=== PATIENT | female | born 1985 | race Caucasian/White ===

== ENCOUNTER 2017-11-04 03:31 | Emergency (ER) | payer SELFPAY | END 2017-11-04 04:42 | disposition home or self-care (01) | PROVIDERS: Emergency Provider Emergency Medicine; Visit Provider Emergency Medicine | DX: S05.01XA Injury of conjunctiva and corneal abrasion without foreign body, right eye, initial encounter (principal); W51.XXXA Accidental striking against or bumped into by another person, initial encounter; Y92.019 Unspecified place in single-family (private) house as the place of occurrence of the external cause; Z72.0 Tobacco use | CPT/HCPCS: 99283 ==

== ENCOUNTER → 2019-01-02 09:15 | Outpatient (CLI) | payer OTHER, SELFPAY ==
[2019-01-02 10:51] LABS: HCG,Quantitative 110 mIU/mL
== END ==
PROVIDERS: Visit Provider Emergency Medicine
DX: Z32.00 Encounter for pregnancy test, result unknown (principal)
CPT/HCPCS: 36415; 84702

== ENCOUNTER → 2019-01-09 08:24 | Outpatient (CLI) | payer OTHER, SELFPAY ==
[2019-01-09 09:51] LABS: HCG,Quantitative 7 mIU/mL
== END ==
PROVIDERS: Visit Provider Nurse Practitioner Obstetrics & Gynecology
DX: Z32.00 Encounter for pregnancy test, result unknown (principal)
CPT/HCPCS: 36415; 84702

== ENCOUNTER → 2019-03-23 16:59 | Outpatient (CLI) | payer OTHER, SELFPAY ==
[2019-03-23 20:12] LABS: HCG,Quantitative 12806 mIU/mL
== END ==
PROVIDERS: Visit Provider Nurse Practitioner Obstetrics & Gynecology
DX: Z34.90 Encounter for supervision of normal pregnancy, unspecified, unspecified trimester
CPT/HCPCS: 36415; 84702

== ENCOUNTER → 2019-04-14 10:17 | Outpatient (CLI) | payer OTHER, SELFPAY ==
--- NOTE | 2019-04-14 10:18 | US_ITS ---
US OB transvaginal HISTORY: ITS.REASON: US OB Dates ORDERING PHYSICIAN: Jordan Elizalde MD PATIENT AGE: 33 years COMPARISON: None FINDINGS: An intrauterine gestational sac is present with a pole with a crown-rump length of 2.01cm correlating to gestational age of 8w5d. heart tones are present with an FHR of 160 bpm's. Yolk sac is noted. The amnion and chorion have not yet fused. Adnexa: Unremarkable. IMPRESSION: Live intrauterine gestation at 8 weeks 5 days as described above. Estimated due date by Ultrasound is 11/19/2019
== END ==
PROVIDERS: Visit Provider Nurse Practitioner Obstetrics & Gynecology
DX: O26.841 Uterine size-date discrepancy, first trimester (principal)
CPT/HCPCS: 76817

== ENCOUNTER → 2019-04-14 11:05 | Outpatient (CLI) | payer OTHER, SELFPAY | PROVIDERS: Visit Provider Nurse Practitioner Obstetrics & Gynecology | DX: O26.841 Uterine size-date discrepancy, first trimester (principal) ==

== ENCOUNTER → 2019-05-04 09:07 | Outpatient (CLI) | payer OTHER, SELFPAY ==
[2019-05-04 09:30] LABS: Basophils % 0.4 % (0.1-2.0); Eosinophils # 0.2 K/mm3 (0.0-0.4); Eosinophils % 2.1 % (0.1-12.0); Hematocrit 37.4 % (37.0-47.0); Hemoglobin 11.9 g/dL (12.2-16.2); Lymphocytes # 2.5 K/mm3 (0.7-4.5); Mean Corpuscular HGB Conc 31.8 g/dL (31.8-35.4); Mean Corpuscular Hemoglobin 28.4 pg (27.0-31.2); Mean Corpuscular Volume 89.4 fl (81-99); Mean Platelet Volume 9.9 fl (7.4-10.4); Monocytes # 0.3 K/mm3 (0.1-1.0); Monocytes % 4.2 % (1.7-9.3); Neutrophils # 4.7 K/mm3 (1.8-7.8); Neutrophils % 61.2 % (37.0-80.0); Platelet Count 151 K/mm3 (142-424); Red Blood Count 4.19 M/mm3 (4.20-5.40); Red Cell Distribution Width 12.4 % (11.5-17.5); White Blood Count 7.7 K/mm3 (4.8-10.8)
[2019-05-05 09:13] LABS: HIV Screen 4th Generation wRfx Non Reactive (Non Reactive)
[2019-05-05 17:12] LABS: Hepatitis B Surface Antigen Negative (Negative); Hepatitis C Antibody <0.1 s/co ratio (0.0-0.9); Rapid Plasma Reagin Ab Titer Non Reactive (NonRea<1:1); Rubella Antibodies, IgG 1.23 index (Immune >0.99)
== END ==
PROVIDERS: Visit Provider Nurse Practitioner Obstetrics & Gynecology
DX: Z34.90 Encounter for supervision of normal pregnancy, unspecified, unspecified trimester (principal)
CPT/HCPCS: 36415; 85025; 86592; 86703; 86762; 86850; 87340; 87380; G0432

== ENCOUNTER → 2019-06-01 10:30 | Outpatient (CLI) | payer OTHER, SELFPAY | PROVIDERS: Visit Provider Nurse Practitioner Obstetrics & Gynecology | DX: O09.899 Supervision of other high risk pregnancies, unspecified trimester (principal); Z36.0 Encounter for antenatal screening for chromosomal anomalies | CPT/HCPCS: 36415 ==

== ENCOUNTER → 2019-07-06 10:01 | Outpatient (CLI) | payer OTHER, SELFPAY ==
--- NOTE | 2019-07-06 10:02 | US_ITS ---
PROCEDURE: US OB /MATERNAL DETAIL Patient Age:34Y CLINICAL INDICATION: US OB Complete Twenty week survey and anatomy scan COMPARISON: April 14 ultrasound revealed a early 8 week 5 day intrauterine gestation FINDINGS: Single viable intrauterine gestation. Cephalic position. Placenta: Posterior high placentaplacenta grade 1. There is average amount fluid. The cervix appears satisfactory. Closed and measuring over 4 cm in length. Complete survey performed and was unremarkable on the submitted images as in PACS. No discrete anomalies identified on survey imaging by technologist. Active fetus. movement seen throughout the exam Three-vessel cord with satisfactory umbilical cord insertion. 4- chamber heart noted.-with cine loop included. Limited images RVOT and LVOT unremarkable Survey of brain & ventricles Unremarkable. Face and neck survey unremarkable. Diaphragm and chest views unremarkable. Abdomen: Both kidneys noted and unremarkable. Stomach noted and satisfactory. Spine: Survey of the spine satisfactory with no anomalies identified nor imaged. Both arms and legs noted. Amniotic Fluid: Adequate. Maternal adnexa: No additional findings encountered Measurements: Average ultrasound age 20 weeks 2 days. Gestational Age 20 weeks 4 days based on LMP02/12/2019 Estimated due date by ultrasound age 0111/21/2019. Estimated weight 340.7 ggrams. BPD = 20 weeks 3 day, BPD 4.76 cm OFD = 6.14 cm with = 20 week 5 day HC = 17.26 cm = 19 weeks 6 day AC = = 15.34 cm =20 week 4 day FL = 3.2 cm = 20 week 0 day Growth Percentile= 26.8 Percent% Heart Rate = 139 bpm Cerebellum = 2.02 cm, =20 week 4 day Nuchal fold = 2.2 cm HC/AC is 1.13 CI is 0.78 FL/BPD is 0.67 FL/AC is 0.21 IMPRESSION: 1. . single viable intrauterine gestation. Cephalic position. 2. 20 weeks 2 day average ultrasound age 3.Anatomical survey unremarkable ; WNL. 4. movement seen throughout. Amniotic fluid normal. Cervix all long, and closed Dictated by: Michael Menchaca MD 07/07/2019 10:37 Signed by: <Electronically signed by Michael Menchaca MD in [place]> 07/07/2019 10:37
== END ==
PROVIDERS: Visit Provider Nurse Practitioner Obstetrics & Gynecology
DX: Z36.0 Encounter for antenatal screening for chromosomal anomalies (principal)
CPT/HCPCS: 76811

== ENCOUNTER → 2019-09-26 12:43 | Outpatient (CLI) | payer OTHER, SELFPAY ==
--- NOTE | 2019-09-26 12:57 | US_ITS ---
PROCEDURE: US OB BIOPHYSICAL PROFILE CLINICAL INDICATION: US OB BPP Growth- SGA TECHNIQUE: FINDINGS: There is a single live fetus which is in cephalic presentation. Cervical length is 4.7 cm. heart and body motion noted. A average ultrasound age is 31 weeks 6 days. Gestational age 32 weeks 2 days. Estimated due date by ultrasound is 11/22/2019. BPD is 32 weeks 0 days, OFD 32 weeks 2 days, HC 32 weeks 0 days, AC 32 weeks 0 days, FL 31 weeks 2 days. Heart rate is 156 beats per minute. All parameters correlate. Amniotic fluid index: 14.07 cm Qualitative AFV: 2 breathing movements: 2 Gross body movements: 2 Tone: 2 Biophysical profile score: 8 The placenta is posterior and grade 2. No previa or abruption IMPRESSION: Live IUP at 31 weeks 6 days which is in cephalic presentation. Biophysical profile is 8 of 8 with amniotic fluid index of 14 cm Dictated by: Cali Camejo MD 09/26/2019 17:47 Electronically signed by Cali Camejo MD in [place] 09/26/2019 17:47
== END ==
PROVIDERS: Visit Provider Nurse Practitioner Obstetrics & Gynecology
DX: O36.5990 Maternal care for other known or suspected poor fetal growth, unspecified trimester, not applicable or unspecified (principal)
CPT/HCPCS: 76816; 76819

== ENCOUNTER → 2019-10-17 16:50 | Outpatient (CLI) | payer OTHER, SELFPAY | PROVIDERS: Visit Provider Nurse Practitioner Obstetrics & Gynecology | DX: Z34.90 Encounter for supervision of normal pregnancy, unspecified, unspecified trimester (principal); Z3A.35 35 weeks gestation of pregnancy | CPT/HCPCS: 86403 ==

== ENCOUNTER → 2019-10-23 12:55 | Outpatient (CLI) | payer OTHER, SELFPAY ==
--- NOTE | 2019-10-23 12:56 | US_ITS ---
PROCEDURE: US OB BPP W/FET-MAT S/D CLINICAL INDICATION: US OB BPP Growth- SGA COMPARISON: US OB BIOPHYSICAL PROFILE from 09/26/2019 FINDINGS: Single viable intrauterine gestation. Cephalic position. Placenta: Posteriorplacenta grade 2. ERASMO is lower normal at 8 cm. Biophysical profile is 8 of 8 The cervix appears satisfactory. Closed and measuring 3 cm in length. Doppler evaluation of the umbilical artery demonstrates a resistive index 0.60 and SD ratio of 2.5 both less than 95th percentile Measurements: Average ultrasound age 35weeks 2days. Gestational Age 35weeks 2days Estimated due date by ultrasound age 0111/25/2019. Estimated weight 5lb 6.33ozgrams. BPD = 37/1 OFD = 35/5 HC = 35/6 AC = 34/4 FL = 33/1 Growth Percentile= 14% Heart Rate = 122bpm Cerebellum = Humerus = HC/AC is 1.04 CI is 0.83 FL/BPD is 0.7 normal is 71 -87 percent FL/AC is 0.21 normal is 20-24 percent IMPRESSION: There is a single live fetus which is in cephalic presentation. Average ultrasound age is 35 weeks 2 days with an estimated weight 2448 g which is 14 percentile. Biophysical profile is 8 of 8 with an ERASMO at lower normal at 8 cm. Resistive index and SD ratio are less than 95th percentile The femur length is slightly low compared to the remaining parameters. Please see above for detail. Dictated by: Cali Camejo MD 11/16/2019 15:46 Electronically signed by Cali Camejo MD in [place] 11/16/2019 15:46
== END ==
PROVIDERS: Visit Provider Nurse Practitioner Obstetrics & Gynecology
DX: O36.5990 Maternal care for other known or suspected poor fetal growth, unspecified trimester, not applicable or unspecified (principal)
CPT/HCPCS: 76819

== ENCOUNTER → 2019-11-06 09:05 | Outpatient (CLI) | payer OTHER, SELFPAY ==
--- NOTE | 2019-11-06 09:16 | US_ITS ---
PROCEDURE: US OB BIOPHYSICAL PROFILE CLINICAL INDICATION: US OB BPP Growth- SGA TECHNIQUE: FINDINGS: The following parameters are obtained: Average ultrasound age is Average 35weeks 6days Estimated due date by ultrasound is 12/05/2019. Estimated weight is 2,771.8g. BPD: 253days 2hours OFD: !Error HC: 32cm AC: 32.6cm FL: 6.6cm heart rate: 134bpm bpm. HC/AC: 0.98 Cephalic index: 0.79 FL/BPD: 0.74 FL/AC: 0.2 Amniotic fluid index: 14.18cm Qualitative AFV: 2 breathing movements: 2 Gross body movements: 2 Tone: 2 Biophysical profile score: 8 Doppler evaluation of the umbilical artery: SD ratio: Resistive index: No obvious anomalies evident. Placenta: Posterior grade 3 Cervix: . 4.5 centimeters in length. IMPRESSION: Compared to 10/23/2019, the posterior placenta is considered grade 3. Biophysical profile 8/8. heart rate 134 beats per minute. No other change. Dictated by: Krystian Savage 11/06/2019 12:09 Electronically signed by Krystian Savage in [place] 11/06/2019 12:09
== END ==
PROVIDERS: Visit Provider Nurse Practitioner Obstetrics & Gynecology
DX: O36.5990 Maternal care for other known or suspected poor fetal growth, unspecified trimester, not applicable or unspecified (principal)
CPT/HCPCS: 76816; 76819

== ENCOUNTER 2019-11-09 11:13 | Outpatient (CLI) | payer OTHER, SELFPAY ==
[2019-11-09 11:34] VITALS: BMI 23.0
[2019-11-09 12:27] VITALS: BMI 23.0
== END 2019-11-09 12:30 | disposition home or self-care (01) ==
LOC: OBOUT 11:14 → OB 11:15
PROVIDERS: Visit Provider Obstetrics & Gynecology
DX: O36.5930 Maternal care for other known or suspected poor fetal growth, third trimester, not applicable or unspecified (principal); Z3A.38 38 weeks gestation of pregnancy
CPT/HCPCS: 59025

== ENCOUNTER 2019-11-13 00:49 | Observation (INO) ==
[2019-11-13 05:49] LABS: Microscopic, Urine URINE MICROSCOPIC (MICROSCOPIC)
[2019-11-13 06:07] LABS: Appearance,Urine CLEAR (Clear); Bilirubin,Urine Negative (Negative); Blood, Urine 1+ (Negative); Color,Urine YELLOW (Yellow); Glucose,Urine (UA) Negative (Negative); Ketones,Urine Negative (Negative); Leukocyte Esterase,Urine 1+ (Negative); PH,Urine 6.5 (5.0-8.5); Protein,Urine 1+ (Negative); Specific Gravity, Urine 1.025 (1.005-1.030); Urobilinogen,Urine 0.2 EU/dl (0.2)
[2019-11-13 06:09] VITALS: BP 112/69
[2019-11-13 06:17] LABS: Amphetamine/Metha Screen,Urine Negative ng/mL (<1000); Barbiturates Screen,Urine Negative ng/mL (<200); Benzodiazepines Screen,Urine Negative ng/mL (<200); Cannabinoid Screen,Urine Negative ng/mL (<50); Cocaine Screen,Urine Negative ng/mL (<300); Methadone Screen,Urine Negative ng/mL (<300); Opiate Screen,Urine Negative ng/mL (<300); Phencyclidine Screen,Urine Negative ng/mL (<25)
[2019-11-13 06:18] LABS: Amorphous Sediment,Urine 1+ /lpf; Bacteria,Urine 2+ /lpf
--- NOTE | 2019-11-13 09:06 | Discharge Summary ---
General - General Admission date:: 11/13/19 Discharge date: 11/13/19 HPI HPI: She is a 34-year-old 3 para 2 at 39+ weeks gestational age. She has a small for gestational age . Last ultrasound showed it was just 14th centile. She came in this morning for induction of labor. However she had a low-grade temperature. We tested her for the flu and she is flu positive so we will plan to send her home and have her come back later in the week. She will also go home with Tamiflu. Hospital Course Hospital Course: She had runny eyes and runny nose when she came in this morning and a low-grade temperature at 99.6. She was tested and it came back positive for the flu. As result of that we have elected not to induce her labor today. We will plan to induce her labor in about 5 days as long as she has remained afebrile. I have given her a prescription for Tamiflu to take home. She will follow-up later this week. Objective Vital signs: Temp Pulse Resp BP Pulse Ox 99.8 F H 97 H 18 112/69 100 11/13/19 04:57 11/13/19 04:57 11/13/19 04:57 11/13/19 04:57 11/13/19 04:57 no acute distress Comments: She has runny eyes and body aches Results Labs on day of discharge: Labs from last 24 hours 11/13/19 11/13/19 11/13/19 06:47 05:00 05:00 Urine Color Yellow Urine Appearance Clear Urine pH 6.5 Ur Specific [place] 1.025 Urine Protein 1+ Urine Glucose (UA) Negative Urine Ketones Negative Urine Blood 1+ Urine Nitrate Negative Urine Bilirubin Negative Urine Urobilinogen 0.2 Ur Leukocyte Esterase 1+ A Urine RBC 5-10 Urine WBC 10-20 Ur Squamous Epith Cells 5-10 Amorphous Sediment 1+ Urine Bacteria 2+ Urine Opiates Screen Negative Urine Methadone Screen Negative Ur Barbituates Screen Negative Ur Phencyclidine Scrn Negative Ur Amphetamines Screen Negative U Benzodiazepines Scrn Negative Urine Cocaine Screen Negative U Marijuana (THC) Screen Negative Influenza Type A Ag Positive A Influenza Type B Ag Negative DS: Diagnosis - Discharge Diagnosis (1) Influenza Status: Acute (2) Status: Acute Discharge Plan - Patient Discharge Instructions ACTIVITY: Continue current activity DIET: continue same diet - Follow up Plan Disposition: Home, Self-Retirement Medications: Home Medications Medication Instructions Recorded Confirmed Type pediatric pbulknok-itiw-frt 2 tab PO DAILY tab 04/06/19 11/01/19 History ferrous sulfate 325 mg (65 mg 325 mg PO DAILY #30 tab 07/07/19 11/01/19 Rx iron) tablet magnesium oxide 500 mg tablet 500 mg PO DAILY 08/22/19 11/01/19 History famotidine-Ca carb-mag hydrox 10 1 tab PO DAILY 10/17/19 11/01/19 History mg-800 mg-165 mg chewable tablet Oseltamivir Phosphate [Tamiflu 75 mg PO DAILY #10 cap 11/13/19 Rx 75mg Capsule] Prescriptions/Medication Reconciliation: New Oseltamivir Phosphate [Tamiflu 75mg Capsule] 75 mg PO DAILY #10 cap Continued magnesium oxide 500 mg tablet 500 mg PO DAILY pediatric pjsokrew-idvj-foj 2 tab PO DAILY tab ferrous sulfate 325 mg (65 mg iron) tablet 325 mg PO DAILY #30 tab famotidine-Ca carb-mag hydrox 10 mg-800 mg-165 mg chewable tablet 1 tab PO DAILY - Problem Reconciliation Problems Reviewed?: Yes
== END 2019-11-13 09:40 | disposition home or self-care (01) ==
LOC: INTOOBSV 04:51 → OB 04:51
PROVIDERS: ADMIT Nurse Practitioner Obstetrics & Gynecology; ATTEND Nurse Practitioner Obstetrics & Gynecology
CPT/HCPCS: 59025; 80305; 81001; 87086; 87275; 87276; G0378

== ENCOUNTER 2019-11-17 04:58 | Inpatient (IN) ==
[2019-11-17 06:10] LABS: Microscopic, Urine URINE MICROSCOPIC (MICROSCOPIC)
[2019-11-17 06:19] LABS: Basophils % 0.3 % (0.1-2.0); Eosinophils # 0.1 K/mm3 (0.0-0.4); Eosinophils % 1.6 % (0.1-12.0); Hematocrit 32.5 % (37.0-47.0); Hemoglobin 10.9 g/dL (12.2-16.2); Lymphocytes # 2.6 K/mm3 (0.7-4.5); Lymphocytes % 31.1 % (10-50); Mean Corpuscular HGB Conc 33.5 g/dL (31.8-35.4); Mean Corpuscular Volume 93.3 fl (81-99); Mean Platelet Volume 11.8 fl (7.4-10.4); Monocytes # 0.3 K/mm3 (0.1-1.0); Monocytes % 3.5 % (1.7-9.3); Neutrophils # 5.3 K/mm3 (1.8-7.8); Neutrophils % 63.6 % (37.0-80.0); Platelet Count 146 K/mm3 (142-424); Red Blood Count 3.48 M/mm3 (4.20-5.40); Red Cell Distribution Width 13.9 % (11.5-17.5); White Blood Count 8.3 K/mm3 (4.8-10.8)
[2019-11-17 06:21] LABS: Appearance,Urine CLEAR (Clear); Bilirubin,Urine Negative (Negative); Blood, Urine TRACE-I (Negative); Color,Urine YELLOW (Yellow); Glucose,Urine (UA) Negative (Negative); Ketones,Urine Negative (Negative); Leukocyte Esterase,Urine 2+ (Negative); PH,Urine 6.5 (5.0-8.5); Protein,Urine TRACE (Negative); Urobilinogen,Urine 0.2 EU/dl (0.2)
[2019-11-17 06:23] LABS: Anion Gap 13.7 mEq/L (5-15); Calcium 8.4 mg/dL (8.5-10.1)
[2019-11-17 06:34] LABS: Amphetamine/Metha Screen,Urine Negative ng/mL (<1000); Barbiturates Screen,Urine Negative ng/mL (<200); Benzodiazepines Screen,Urine Negative ng/mL (<200); Cannabinoid Screen,Urine Negative ng/mL (<50); Cocaine Screen,Urine Negative ng/mL (<300); Methadone Screen,Urine Negative ng/mL (<300); Opiate Screen,Urine Negative ng/mL (<300); Phencyclidine Screen,Urine Negative ng/mL (<25)
[2019-11-17 06:38] LABS: Bacteria,Urine 2+ /lpf; RBC,Urine Occasional #/hpf (0-3)
--- NOTE | 2019-11-17 08:24 | History & Physical Report ---
OB - H&P: HPI Antepartum - History of Present Illness Chief complaint: Term , small for gestational age History of present illness: She is a 34-year-old 3 para 2 at 39+ weeks gestational age. She is known to have a small for gestational age . She was due to be induced a few days ago and was found to have the flu. She has been taking Tamiflu. She has been asymptomatic for the last 3 days. Otherwise she is doing well. Nonstress test reactive and contractions every 2 to 3 minutes now. - History of Present Criteria for establishing EDC:: LMP confirmed by 1st trimester US care: good care Ultrasounds: normal 1st trimester US, normal mid trimester US Obstetrical complications: other Medical complications: none [facility] History I have reviewed the patient's past medical history: Yes Medical History: Denies:: Diabetes Mellitus Type 1, Diabetes Mellitus Type 2, Internal Pacemaker *Have you ever received a pneumonia vaccine?: No *Have you received a flu vaccine this season?: No Other Surgeries: Yes: No Previous Surgery, Dilation and Curettage, Other. No: , Pacemaker Amputation: No Fractures: No - *Social History Smoking Status: Current every day smoker Tobacco Type: cigarettes # Packs/Day (cigarettes): 0 #Yrs smoked (if former smoker): 15 Alcohol Intake: never Alcohol Intake Frequency:: holidays/special occasions only Substance Use Type: former substance user *Occupational Status:: unemployed *Travel in the last 8 weeks: None Family Hx:: No significant family history Para: 3 Review of Systems - Review of Systems Review of systems:: pertinent systems reviewed and negative unless documented below Meds Home Medications Medication Instructions Recorded Confirmed Type pediatric fwnmigge-dfyt-kcu 2 tab PO DAILY tab 04/06/19 11/17/19 History famotidine-Ca carb-mag hydrox 10 1 tab PO DAILY 10/17/19 11/17/19 History mg-800 mg-165 mg chewable tablet Ferrous Sulfate 325 mg PO DAILY 11/13/19 11/17/19 History Oseltamivir Phosphate [Tamiflu 75 mg PO DAILY 11/17/19 11/17/19 History 75mg Capsule] Allergies Allergy/AdvReac Type Severity Reaction Status Date / Time codeine [CODEINE] Allergy Unknown Verified 11/01/19 09:30 OB - H&P: Exam - Physical Exam Vital signs: Temp Pulse Resp BP Pulse Ox 98.4 F 71 18 127/69 99 11/17/19 05:19 11/17/19 05:19 11/17/19 05:19 11/17/19 05:19 11/17/19 05:19 - Constitutional no acute distress - Routine HEENT Exam Head: Present: normocephalic Eye: Present: EOMI, PERRL ENT: Present: mucous membranes moist - Routine Neck Exam Present: supple, full ROM - Routine Respiratory Exam Absent: accessory muscle use (good air entry bilaterally), respiratory distress, wheezes, crackles - Routine Cardiovascular Exam Present: RRR. Absent: murmur - Routine Abdominal Exam Present: soft, normoactive bowel sounds. Absent: tenderness, distended, guarding - Routine Rectal Exam Patient deferred: visual exam, digital exam - Routine Exam Patient deferred: external exam, groin exam, perineal exam - Routine Extremities Exam Present: full ROM. Absent: cyanosis, edema - Routine Skin Exam Present: intact. Absent: cyanosis - Routine Neurological Exam Present: alert, oriented X3 - Routine Psychiatric Exam Present: normal affect OB - Results - Labs Labs: Short CBC 11/17/19 Range/Units 05:48 WBC 8.3 (4.8-10.8) K/mm3 Hgb 10.9 L (12.2-16.2) g/dL Hct 32.5 L (37.0-47.0) % Plt Count 146 (142-424) K/mm3 BMP 11/17/19 05:48 Sodium 136 Potassium 3.7 Chloride 104 Carbon Dioxide 22 BUN 7 Creatinine 0.50 L Glucose 89 Calcium 8.4 L Urine 11/17/19 Range/Units 05:50 Urine Color Yellow (Yellow) Urine Appearance Clear (Clear) Urine pH 6.5 (5.0-8.5) Ur Specific [place] 1.010 (1.005-1.030) Urine Protein Trace (Negative) Urine Glucose (UA) Negative (Negative) OB - A/P Antepartum (1) Normal delivery at term Current visit: Yes Status: Acute (2) Small for gestational age fetus affecting management of mother Current visit: Yes Status: Acute - Additional Plan Planning to breastfeed?: No Plan: induction Additional Information:: She has a small for gestational age currently 12 centile. The fluid was normal. Since she is term were going to induce her and deliver her. Cervix was found to be 4 cm, 75% effaced and station -1. I ruptured her membranes and there was clear fluid. She is having contractions every 2 minutes. The nonstress test is reactive.
--- NOTE | 2019-11-17 13:03 | Procedure Note ---
- Delivery Note Delivery Date:: 11/17/19 Delivery Time:: 12:31 Anesthesia Type: None Was labor medically induced?: Yes Induction method: per pitocin protocol Gestational age (weeks): 39 Infant delivered prior to 39 weeks?: No Justification for early elective delivery:: IUGR Infant Gender: Male at 1 minute: 8 Delivery Procedure:: She is a 34-year-old 3 para 2 at 39+ weeks gestational age. She was known to have a small for gestational age infant but when she was brought in a few days ago for induction of labor it was noted that she had the flu. As result of that we sent her home on Tamiflu for the last few days. For the last 3 days she has been completely afebrile. She was started on IV oxytocin and had her membranes ruptured. Under labor epidural she was to full dilation and delivered spontaneously a liveborn male child at 12:31 PM. On deliver the head the anterior shoulder then delivered followed by the rest the infant's body atraumatically. The oropharynx and nasopharynx were bulb suction. The baby was vigorous. We allowed the cord to continue to pulsate for approximately 1 minute. The cord was then doubly clamped and cut and the was placed on the mother's abdomen for further care. The nurses assigned Apgars of 8 at 1 minute and 9 at 5 minutes. We then obtained cord blood as well as cord pH. The pH was 7.19. She received IV oxytocin and using gentle traction on the cord and countertraction on the fundus I was able to easily deliver the placenta intact. Had a normal three- vessel cord. There were no perineal or vaginal lacerations. Her estimated blood loss was approximately 400 cc. Her coverer is Dr. Zepeda. Placental Delivery Description: Spontaneous
[2019-11-18 08:13] LABS: Hematocrit 28.7 % (37.0-47.0); Hemoglobin 9.7 g/dL (12.2-16.2)
--- NOTE | 2019-11-18 11:45 | Discharge Summary ---
General - General Admission date:: 11/17/19 Discharge date: 11/18/19 HPI HPI: She is a 34-year-old 3 now para 3 who is 39+ weeks gestational age. We had plan to bring her in at 38+ weeks because of a small for gestational age infant but unfortunately she was diagnosed with the flu on her day of admission. As result of that we started her on Tamiflu and sent her home for 5 days. Hospital Course Hospital Course: She had been afebrile and asymptomatic for 3 days prior to her delivery and as result of that we brought her in for induction of labor. She was started on IV oxytocin had her membranes ruptured. She progressed to full dilation and delivered spontaneously a liveborn male child at 12:31 PM in the afternoon of November 17, 2019. The baby weighed 6 pounds 3 ounces and had Apgars of 8 at 1 minute and 9 at 5 minutes. She has done well and has remained afebrile throughout her hospitalization. She is eating and drinking and ambulating. She has a Rh+ blood, she is rubella immune and was group B streptococcus negative. She is breast-feeding. Her cloth desizing range tender Dr. Zepeda. She is discharged home to follow-up with me in approximately 2 weeks time. She was given the usual instructions with respect to limiting her activity, driving and sexual activity. She is taking yyap-lha-qzldevh analgesics. Rhogam Administration: Not Indicated Objective Vital signs: Temp Pulse Resp BP Pulse Ox 98.1 F 76 16 122/76 99 11/18/19 07:45 11/18/19 07:45 11/18/19 07:45 11/18/19 07:45 11/18/19 07:45 no acute distress Results Labs on day of discharge: Labs from last 24 hours 11/18/19 11/17/19 07:20 12:43 Hgb 9.7 L Hct 28.7 L Cord ABG pH 7.19 L* Preliminary micro results at discharge 11/17/19 05:50 Urine Culture - Preliminary Urine,Clean Catch DS: Diagnosis - Discharge Diagnosis (1) Normal delivery at term Status: Acute (2) Small for gestational age fetus affecting management of mother Status: Acute Discharge Plan - Patient Discharge Instructions ACTIVITY: No heavy lifting DIET: continue same diet Patient Instructions: Depression, Hemorrhage, DI for Labor and Delivery, Vaginal , [facility] Shaken Baby Syndrome - Follow up Plan Disposition: Home, Self-Senior Care Medications: Home Medications Medication Instructions Recorded Confirmed Type pediatric rivytfts-zaie-ukj 2 tab PO DAILY tab 04/06/19 11/17/19 History famotidine-Ca carb-mag hydrox 10 1 tab PO DAILY 10/17/19 11/17/19 History mg-800 mg-165 mg chewable tablet Ferrous Sulfate 325 mg PO DAILY 11/13/19 11/17/19 History Oseltamivir Phosphate [Tamiflu 75 mg PO DAILY 11/17/19 11/17/19 History 75mg Capsule] Prescriptions/Medication Reconciliation: Continued pediatric nxojflqr-hhyc-wpr 2 tab PO DAILY tab famotidine-Ca carb-mag hydrox 10 mg-800 mg-165 mg chewable tablet 1 tab PO DAILY Oseltamivir Phosphate [Tamiflu 75mg Capsule] 75 mg PO DAILY Ferrous Sulfate 325 mg PO DAILY - Problem Reconciliation Problems Reviewed?: Yes
[2019-11-18 12:01] VITALS: BP 134/70
== END 2019-11-18 17:15 | disposition home or self-care (01) | DRG 807 ==
LOC: OB 04:58
PROVIDERS: ADMIT Nurse Practitioner Obstetrics & Gynecology; ATTEND Nurse Practitioner Obstetrics & Gynecology
CPT/HCPCS: J0595

== ENCOUNTER → 2020-10-17 11:19 | Outpatient (CLI) | payer MEDICAID, SELFPAY ==
[2020-10-17 12:06] LABS: Basophils # 0.1 K/mm3 (0-0.2); Basophils % 0.7 % (0.1-2.0); Eosinophils # 0.1 K/mm3 (0.0-0.4); Eosinophils % 1.7 % (0.1-12.0); Hematocrit 47.3 % (37.0-47.0); Lymphocytes # 2.3 K/mm3 (0.7-4.5); Lymphocytes % 32.4 % (10-50); Mean Corpuscular HGB Conc 31.8 g/dL (31.8-35.4); Mean Corpuscular Hemoglobin 30.8 pg (27.0-31.2); Mean Corpuscular Volume 97.1 fl (81-99); Mean Platelet Volume 10.9 fl (7.4-10.4); Monocytes # 0.3 K/mm3 (0.1-1.0); Neutrophils # 4.3 K/mm3 (1.8-7.8); Neutrophils % 61.2 % (37.0-80.0); Platelet Count 203 K/mm3 (142-424); Red Blood Count 4.87 M/mm3 (4.20-5.40); White Blood Count 7.1 K/mm3 (4.8-10.8)
[2020-10-17 12:33] LABS: Chloride 103 mmol/L (98-107); Potassium 4.6 mmoL/L (3.5-5.1); Sodium 138 mmol/L (136-145)
[2020-10-17 12:36] LABS: Anion Gap 12.6 mEq/L (5-15); Blood Urea Nitrogen 10 mg/dl (7-17); Carbon Dioxide 27 mmol/L (22.0-30.0); Estimated Glomerular Filt Rate 115 ml/min (>60); GFR (African American) 139 ML/MIN (>60)
[2020-10-17 12:37] LABS: Calcium 9.6 mg/dl (8.4-10.2); Glucose 90 mg/dl (74-100)
[2020-10-17 12:42] LABS: HCG Qualitative, Serum Negative (Negative)
[2020-10-17 14:20] LABS: Coronavirus 19 IgG Antibody Negative (Negative); Coronavirus 19 IgM Antibody Negative (Negative)
== END ==
PROVIDERS: Visit Provider Nurse Practitioner Obstetrics & Gynecology
DX: Z01.818 Encounter for other preprocedural examination (principal); Z30.09 Encounter for other general counseling and advice on contraception
CPT/HCPCS: 36415; 80048; 84703; 85025; 86328

== ENCOUNTER 2020-10-18 06:15 | Day surgery (SDC) | payer MEDICAID, SELFPAY ==
[2020-10-16 09:48] VITALS: BMI 20.7
[2020-10-18] VITALS (10 sets, daily range): BP systolic 95–132; BP diastolic 57–88; PULSE 64–92; RESP 16–20; TEMP 36.5–36.9; O2SAT 98–100
--- NOTE | 2020-10-18 06:58 | P.PN_ITS ---
[facility] Anesthesia Checklist - Patient Identification Patient Identification: Arm Band, Verbal (Name & ) - Structural Data Admitted From: Home Planned Operative Procedure/s: LaparoscopicBilateral salpingectomy Consent for Planned Operative Procedure(s) Verified: Yes Verified Documents: Surgical Consent, History and Physical - NPO Status Verified Time NPO: 20:30 - Chart Verification Results Verified: CBC, BMP, HCG - Additional verifications Patient : No Anesthesia Reactions: No Hx Blood Transfusions: No Blood Transfusion Reaction: No - Airway Assessment C-Spine Mobility Assessed: Yes TMJ Mobility Assessed: Yes Dentition: Good Dentition - Neurological Assessment Level of Consciousness: Awake, Alert, Appropriate, Follows Commands Hx Seizures: No Numbness or tingling in extremities: No - Anesthesia Plan Anesthesia Risk discussed: Yes Anesthesia Plan: Verified ASA Class: II Anesthesia Type: General (GETA) [facility] History I have reviewed the patient's past medical history: Yes Medical History: Denies:: Cancer, Diabetes Mellitus Type 1, Diabetes Mellitus Type 2, Internal Pacemaker, MRSA, Seizures *Have you ever received a pneumonia vaccine?: No *Have you received a flu vaccine this season?: No Other Medical History: Denies: Blood Transfusion Reaction Anesthesia experience/problems:: None Other Surgeries: Yes: Dilation and Curettage, Other (Oral x2). No: , Pacemaker Amputation: No Fractures: No - *Social History Last grade of school completed: Some college Smoking Status: Current every day smoker Tobacco Type: cigarettes # Packs/Day (cigarettes): 1 #Yrs smoked (if former smoker): 15 Alcohol Intake: current Alcohol Intake Frequency:: holidays/special occasions only Substance Use Type: former substance user *Occupational Status:: employed Housing: house Household Members: spouse, family *Travel in the last 8 weeks: None Family Hx:: No significant family history
--- NOTE | 2020-10-18 08:07 | [facility].OPNOTE ---
Date of procedure: 10/18/20 Pre-op Diagnosis:: Desire for sterilization Post-op Diagnosis:: Desire for sterilization Procedure performed:: Laparoscopic bilateral salpingectomy Surgeon:: Jordan Elizalde MD SALES ASSISTANT [employer]TERTAINMENT AND MEDIA:: Rayshawn Crow Anesthesia: GETA Estimated blood loss (mL): 25 Clinical Note:: She is a 35-year-old lady who expressed desire for sterilization. The risks and benefits as well as the irreversibility of bilateral salpingectomy were discussed with the patient prior to surgery. Operative findings:: She had a normal-appearing anteverted uterus. The pelvis appeared normal. She did have a 2 cm follicular cyst on the right ovary. The left ovary appeared normal. Both tubes appeared normal. The appendix was visualized appeared normal. The upper abdomen appeared normal. Operative note:: She was taken to the operating room where general anesthesia was found be adequate. She was prepped and draped in normal sterile fashion in the semilithotomy position. A weighted speculum was placed in the vagina and the anterior lip of the cervix was grasped with a tenaculum. I then inserted a Aminata uterine manipulator into the cervical os. The balloon was then insufflated. I changed gloves and injected 10 cc of 0.5% ropivacaine around her umbilicus and made a small incision within the umbilicus. I inserted a Veress needle into the abdominal cavity. The peritoneal cavity was then insufflated with carbon dioxide gas to a pressure of 20 mmHg. I then inserted a 5 millimeter trocar under direct vision. I injected through and through the pubic hairline, made a small incision here and inserted an 8 mm trocar under direct vision. I identified the inferior epigastric artery on the left side, went lateral to these and injected through and through. I then placed a 5 mm trocar here under direct vision. The pelvis and upper abdomen were then inspected and the findings were as previously dictated. I grasped the right tube at the cornua and using harmonic scalpel on coagulation mode I cut through the tube. I then grasped the distal tube and using harmonic scalpel cut along the mesosalpinx. The tube was removed through 8 mm trocar site. This was similarly performed on the patient's left side. I then injected 30 cc of 0.5% ropivacaine into the pelvis. After assuring hemostasis the gas was let out of the abdomen and hemostasis was once again assured. The abdomen was then reinsufflated. The secondary trochars were removed under direct vision. The gas was let out her abdomen. The primary trocar was then removed. The 8 mm trocar site was closed deeply with 2-0 Vicryl suture followed by subcuticular 4-0 Monocryl suture. The 5 mm trocar sites were closed with subcuticular 4-0 Monocryl. Sterile dressings were applied. The patient tolerated the procedure well and was taken to the recovery room in excellent condition. All sponge instrument and needle counts were correct. The estimated blood loss was less than 25 cc. Condition: stable Disposition: PACU Specimens:: Bilateral fallopian tubes Complications:: None
--- NOTE | 2020-10-18 08:16 | P.PN_ITS ---
[facility] Anesthesia Record Part I Intake, IV Amount: 600 Estimated blood loss (mL): 25 Urine output (mL): 10 Blood Products used (#): none Blood Pressure: 132/88 SaO2: 99 Pulse Rate: 92 Respiratory Rate: 16 Temperature: 98.4 F Patient is:: Awake, Stable Stable to PACU at:: 08:10
--- NOTE | 2020-10-18 09:12 | PC.NURSE ---
0837-detailed report called to ALON Giraldo 0840-pt transported to post op via stretcher w/berto rails up per ALON Giraldo, vss, pt stable
--- NOTE | 2020-10-18 13:48 | HMH.ANESII ---
[facility] Anesthesia Record Part II Discharge Time: 08:40 Destination: [facility] (OP Surgery) PACU nurse assessment reviewed?: Yes Patient Condition:: Good Anesthesia Complications:: None Swallowing reflex intact?: Yes Cyanosis?: No Blood Pressure: 104/74 Pulse Rate: 68 Temperature: 97.7 F Mental Status: Alert & Oriented Pain level:: 1 Nausea and/or vomitting:: None Intake, IV Amount: 0
== END 2020-10-18 09:10 | disposition home or self-care (01) ==
LOC: OR 06:17
PROVIDERS: Visit Provider Nurse Practitioner Obstetrics & Gynecology
PROC: (CPT 58700; principal; 2020-10-18 07:30)
DX: Z30.2 Encounter for sterilization (principal); N83.01 Follicular cyst of right ovary
CPT/HCPCS: 58700; 96374; J2405